=== PATIENT | female | born 1970 | race Caucasian/White ===

== ENCOUNTER 2019-06-08 23:12 | Emergency (ER) | payer MEDICAID ==
[~2019-06-08] VITALS: Ht 165.1 cm; Wt 63.5 kg
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
[2019-06-09] MEDS ORDERED: IBUPROFEN 600 MG TABLET PO ONE (00:45)
[2019-06-09] MEDS ORDERED: AMOXicillin 250 MG CAPSULE PO ONE (00:45)
[2019-06-09] MEDS ORDERED: AMOXicillin 250 MG CAPSULE ONE (00:51)
[2019-06-09] MEDS ORDERED: IBUPROFEN 600 MG TABLET ONE (00:51)
--- NOTE | 2019-06-09 00:59 | NUR ---
Patient given written and verbal discharge instructions. Patient verbalizes understanding of instructions. Patient is ambulatory with steady gait. Refuses offer of [facility] placement. Patient given list of available shelters in surrounding area.
[2019-06-09 01:00] VITALS: BP 128/76
== END 2019-06-09 01:01 | disposition home or self-care (01) ==
LOC: ER 23:12
DX: S09.90XA Unspecified injury of head, initial encounter (principal); S00.01XA Abrasion of scalp, initial encounter; K08.89 Other specified disorders of teeth and supporting structures; X99.2XXA Assault by sword or dagger, initial encounter; Y93.01 Activity, walking, marching and hiking; Y92.89 Other specified places as the place of occurrence of the external cause; Y99.8 Other external cause status
CPT/HCPCS: 70450; 72125; A4217; A4663